=== PATIENT | male | born 1985 | race Asian ===

== ENCOUNTER → 2017-09-05 | Outpatient (CLI) | payer OTHER | END | disposition home or self-care (01) | LOC: EMPHLTH 09:58 | PROVIDERS: ATTEND Internal Medicine | DX: Z02.1 Encounter for pre-employment examination (principal) | CPT/HCPCS: 86706; 86735; 86762; 86765; 86787 ==

== ENCOUNTER 2019-02-07 18:57 | Emergency (ER) | payer OTHER ==
[~2019-02-07] VITALS: Ht 190.5 cm; Wt 122.7 kg
[2019-02-07 20:45] VITALS: BP 141/72
== END 2019-02-07 21:00 | disposition home or self-care (01) ==
LOC: EMS 18:58
DX: S62.306A Unspecified fracture of fifth metacarpal bone, right hand, initial encounter for closed fracture (principal); F17.210 Nicotine dependence, cigarettes, uncomplicated; W22.01XA Walked into wall, initial encounter; Y93.89 Activity, other specified; Y92.89 Other specified places as the place of occurrence of the external cause; Y99.8 Other external cause status

== ENCOUNTER 2019-02-10 15:46 | Emergency (ER) | payer MEDICARE, OTHER ==
[~2019-02-10] VITALS: Ht 190.5 cm; Wt 122.7 kg
[2019-02-10] MEDS ORDERED: SULFAMETHOX/TRIMETH DS 800-160 MG/TABLET PO ONE (17:00)
[2019-02-10] MEDS ORDERED: ACETAMINOPHEN 500 MG TABLET PO ONE (17:00)
[2019-02-10] MEDS ORDERED: CEPHALEXIN MONOHYDRATE 500 MG CAPSULE PO ONE (17:00)
[2019-02-10 19:05] VITALS: BP 108/79
== END 2019-02-10 19:05 | disposition home or self-care (01) ==
LOC: EMS 15:50
DX: S62.336D Displaced fracture of neck of fifth metacarpal bone, right hand, subsequent encounter for fracture with routine healing (principal); F17.210 Nicotine dependence, cigarettes, uncomplicated; W22.01XD Walked into wall, subsequent encounter
CPT/HCPCS: 99406

== ENCOUNTER 2019-03-15 15:03 | Emergency (ER) | payer MEDICARE, OTHER ==
[~2019-03-15] VITALS: Ht 190.5 cm; Wt 127.0 kg
[2019-03-15 16:12] VITALS: BP 126/72
== END 2019-03-15 16:17 | disposition home or self-care (01) ==
LOC: EMS 15:04
DX: S62.336A Displaced fracture of neck of fifth metacarpal bone, right hand, initial encounter for closed fracture (principal); F17.210 Nicotine dependence, cigarettes, uncomplicated; Z98.890 Other specified postprocedural states; X58.XXXA Exposure to other specified factors, initial encounter; Y93.89 Activity, other specified; Y92.89 Other specified places as the place of occurrence of the external cause; Y99.8 Other external cause status

== ENCOUNTER 2019-04-01 12:30 | Emergency (ER) | payer OTHER ==
[~2019-04-01] VITALS: Ht 190.5 cm; Wt 122.7 kg
[2019-04-01 13:16] VITALS: BP 127/92
[2019-04-01] MEDS ORDERED: IBUPROFEN 400 MG TABLET PO ONE (14:00)
== END 2019-04-01 14:49 | disposition home or self-care (01) ==
LOC: EMS 12:34
DX: J11.1 Influenza due to unidentified influenza virus with other respiratory manifestations (principal); F17.210 Nicotine dependence, cigarettes, uncomplicated

== ENCOUNTER → 2019-12-08 | Outpatient (CLI) | payer OTHER | END | disposition home or self-care (01) | LOC: LABPV 15:19 | PROVIDERS: ATTEND Internal Medicine | DX: Z20.828 Contact with and (suspected) exposure to other viral communicable diseases (principal) | CPT/HCPCS: U0003-CS ==

== ENCOUNTER → 2020-01-03 | Outpatient (CLI) | payer OTHER ==
[2020-01-03 16:04] LABS: COVID AG,FIA SOURCE NASOPHARYNGEAL
== END | disposition home or self-care (01) ==
LOC: LABMN 12:00
DX: Z20.828 Contact with and (suspected) exposure to other viral communicable diseases (principal)
CPT/HCPCS: 87426; U0003

== ENCOUNTER 2020-10-04 12:24 | Emergency (ER) | payer OTHER ==
[~2020-10-04] VITALS: Ht 190.5 cm; Wt 140.9 kg
[2020-10-04 13:22] LABS: COVID AG,FIA SOURCE NASOPHARYNGEAL
[2020-10-04] MEDS ORDERED: ACETAMINOPHEN 500 MG TABLET PO ONE (13:45)
[2020-10-04] MEDS ORDERED: IBUPROFEN 600 MG TABLET PO ONE (13:45)
[2020-10-04 14:50] VITALS: BP 128/81
== END 2020-10-04 14:51 | disposition home or self-care (01) ==
LOC: EMS 13:55
DX: U07.1 COVID-19 (principal)
CPT/HCPCS: 71045; 87426; 99284; C9803; U0003

== ENCOUNTER 2020-10-08 12:13 | Inpatient (IN) | payer OTHER ==
[~2020-10-08] VITALS: Ht 190.5 cm; Wt 130.5 kg
[2020-10-08] MEDS ORDERED: ACETAMINOPHEN 1000 MG/ISO-OSM 100 ML IV ONE (12:30)
[2020-10-08] MEDS ORDERED: SODIUM CHLORIDE 0.9% 1,000 ML IV ONE (12:30)
[2020-10-08 12:45] LABS: BASOPHILS % (AUTO) 0.3 % (0.0-2.0); EOSINOPHILS % (AUTO) 0 % (1.0-6.0); HEMATOCRIT 50.1 % (41-53); HEMOGLOBIN 16.8 g/dL (13.5-17.5); LYMPHOCYTES # (AUTO) 0.8 K/uL (1.0-4.8); LYMPHOCYTES % (AUTO) 15.2 % (22.0-44.0); MEAN CORPUSCULAR HEMOGLOBIN 28.7 pg (26.0-34.0); MEAN CORPUSCULAR HGB CONC 33.4 G/dL (31.0-37.0); MEAN CORPUSCULAR VOLUME 86 fL (80-100); MONOCYTES # (AUTO) 0.4 K/uL (0.1-1.0); MONOCYTES % (AUTO) 7.2 % (2.0-9.0); NEUTROPHILS # (AUTO) 4.1 K/uL (1.8-7.7); NEUTROPHILS % (AUTO) 77.3 % (40.0-70.0); PLATELET COUNT (AUTO) 157 K/uL (150-450); RED BLOOD CELL COUNT(AUTO) 5.85 MIL/uL (4.50-5.90); RED CELL DISTRIBUTION WIDTH 13.8 % (11.5-14.5)
[2020-10-08 12:52] LABS: ANION GAP 13 mmol/L (8-16); CALCIUM, TOTAL 8.4 mg/dL (8.8-10.5); CARBON DIOXIDE 22 mmol/L (22-29); CHLORIDE 98 mmol/L (98-107); CREATININE 1.73 mg/dL (0.60-1.30); GLOMERULAR FILTR. RATE CALC 45 mL/min (>60); GLUCOSE,RANDOM 131 mg/dL (70-110); POTASSIUM 3.3 mmol/L (3.5-5.1); SODIUM SERUM 133 mmol/L (136-145); UREA NITROGEN, BLOOD 18 mg/dL (7-18)
[2020-10-08 12:58] LABS: D-DIMER 0.54 mg/L FEU (0.00-0.50); PROTHROMBIN TIME 10.7 SEC (9.4-11.6)
[2020-10-08 13:11] LABS: B-TYPE NATRIURETIC PEPTIDE < 5 pg/mL (0-100)
[2020-10-08] MEDS ORDERED: FentaNYL CITRATE PF 100 MCG/2 ML VIAL IVP ONE (13:15)
[2020-10-08] MEDS ORDERED: ONDANSETRON HCL 4 MG/2 ML VIAL IVP ONE ×2 (13:15)
[2020-10-08] MEDS ORDERED: DEXAMETHASONE SOD PHOS 4 MG/ML 5 ML VIAL IVP ONE (13:30)
[2020-10-08] MEDS ORDERED: DEXAMETHASONE SOD PHOS 4 MG/ML 5 ML VIAL IM ONE (13:30)
[2020-10-08 13:31] LABS: ALANINE AMINOTRANSFERASE 81 U/L (12-78); ALBUMIN 3.8 g/dL (3.4-5.0); ALKALINE PHOSPHATASE 68 U/L (46-116); ASPARTATE AMINOTRANSFERASE 84 U/L (15-37); BILIRUBIN,TOTAL 0.5 mg/dL (0.1-1.0); FERRITIN 2106 ng/mL (26-388); LACTATE DEHYDROGENASE 373 U/L (85-227); TOTAL PROTEIN, SERUM 8.4 g/dL (6.4-8.2)
[2020-10-08 13:33] LABS: CREATINE KINASE, TOTAL ONLY 2354 U/L (39-308)
[2020-10-08 14:12] LABS: INFLUENZA TYPE A NEGATIVE FOR TYPE A (NEGATIVE); INFLUENZA TYPE B NEGATIVE FOR TYPE B (NEGATIVE)
[2020-10-08] MEDS ORDERED: REMDESIVIR 200 MG in SODIUM CHLORIDE 0.9% 250 ML IV ONE (14:15)
[2020-10-08 14:24] LABS: ABG A-A DIFF O2 42.4 mmHg (10-20.0); ABG BASE EXCESS -4.8 mmol/L (-2.0-3.0); ABG CARBOXYHEMOGLOBIN 0.6 % (0.0-1.5); ABG HCO3 21.4 mmol/L (22.0-26.0); ABG METHEMOGLOBIN 0.1 % (0.0-1.5); ABG OXYGEN CONTENT 20.9 mL/dL (15.0-23.0); ABG OXYGEN SATURATION 94.1 % (95.0-98.0); ABG OXYHEMOGLOBIN 93.4 % (94.0-100.0); ABG PCO2 32 mmHg (35-45); ABG PH 7.408 (7.350-7.450); ABG TOTAL HEMOGLOBIN 15.9 G/dL (12.0-18.0); PO2, ARTERIAL BG 68.8 mmHg (92.0-100.0); SOURCE, BLOOD GAS ARTERIAL; TEMPERATURE, FAHRENHEIT, BG 98.2 FAHREN (96.0-98.6)
[2020-10-08 14:25] LABS: O2 DEVICE,BLOOD GAS ROOM AIR (ROOM AIR); SITE, BLOOD GAS LFT RADIAL
[2020-10-08] MEDS ORDERED: ACETAMINOPHEN 325 MG TABLET PO PRN (14:45)
[2020-10-08] MEDS ORDERED: 0.9% SODIUM CHLORIDE 10 ML SYRINGE IVP PRN (14:45)
[2020-10-08] MEDS ORDERED: ONDANSETRON HCL 4 MG/2 ML VIAL IVP PRN ×2 (14:45→16:15)
[2020-10-08] MEDS ORDERED: MORPHINE SULFATE 2 MG/ML SYRINGE IVP PRN (16:15)
[2020-10-08] MEDS ORDERED: MAGNESIUM HYDROXIDE SUSPENSION 30 ML UDCUP PO PRN (16:15)
[2020-10-08] MEDS ORDERED: SODIUM CHLORIDE 0.9% 500 ML IV ONE (16:15)
[2020-10-08] MEDS ORDERED: HYDROCODONE/ACETAMINOPHEN 5-325 MG TABLET PO PRN (16:15)
[2020-10-08] MEDS ORDERED: HEPARIN SODIUM,PORCINE 5,000 UNITS/ML VIAL IVP PRN ×2 (16:15)
[2020-10-08] MEDS ORDERED: BISACODYL 10 MG RECTAL RECTAL SUPPOSITORY PR PRN (16:15)
[2020-10-08 16:37] LABS: HEMATOCRIT 44.3 % (41-53); MEAN CORPUSCULAR HEMOGLOBIN 28.6 pg (26.0-34.0); MEAN CORPUSCULAR HGB CONC 33.8 G/dL (31.0-37.0); MEAN CORPUSCULAR VOLUME 85 fL (80-100); PLATELET COUNT (AUTO) 142 K/uL (150-450); RED BLOOD CELL COUNT(AUTO) 5.24 MIL/uL (4.50-5.90); RED CELL DISTRIBUTION WIDTH 13.9 % (11.5-14.5)
[2020-10-08 16:52] LABS: PROTHROMBIN TIME 10.7 SEC (9.4-11.6)
[2020-10-08 17:22] LABS: BAND NEUTROPHILS % (MANUAL) 47 % (0-5); BASOPHILS % (MANUAL) 1 % (0-2); LYMPHOCYTES % (MANUAL) 8 % (22-44); MONOCYTES % (MANUAL) 3 % (2-9); SEGMENTED NEUTROPHILS % 41 % (40-70)
[2020-10-08 19:57] VITALS: BP 116/73
[2020-10-08] MEDS: DOCUSATE SODIUM 100 MG CAPSULE PO SCH ×2 (21:10→23:57)
[2020-10-08] MEDS: ZOLPIDEM TARTRATE 5 MG TABLET PO PRN (21:11)
[2020-10-08] MEDS: HEPARIN SODIUM 25000 UNITS/D5W 250 ML IV PRN (21:49)
[2020-10-08 23:16] VITALS: BP 115/69
[2020-10-09] MEDS ORDERED: HEPARIN SODIUM,PORCINE 5,000 UNITS/ML VIAL SQ SCH
[2020-10-09 04:31] VITALS: BP 113/73
[2020-10-09] MEDS: ACETAMINOPHEN 325 MG TABLET PO PRN (04:36)
[2020-10-09 06:20] LABS: BASOPHILS % (AUTO) 0.1 % (0.0-2.0); EOSINOPHILS % (AUTO) 0 % (1.0-6.0); HEMATOCRIT 43.1 % (41-53); HEMOGLOBIN 14.6 g/dL (13.5-17.5); LYMPHOCYTES # (AUTO) 0.5 K/uL (1.0-4.8); LYMPHOCYTES % (AUTO) 16.2 % (22.0-44.0); MEAN CORPUSCULAR HEMOGLOBIN 28.9 pg (26.0-34.0); MEAN CORPUSCULAR HGB CONC 33.8 G/dL (31.0-37.0); MEAN CORPUSCULAR VOLUME 86 fL (80-100); MONOCYTES # (AUTO) 0.3 K/uL (0.1-1.0); MONOCYTES % (AUTO) 9.1 % (2.0-9.0); NEUTROPHILS # (AUTO) 2.5 K/uL (1.8-7.7); NEUTROPHILS % (AUTO) 74.6 % (40.0-70.0); PLATELET COUNT (AUTO) 137 K/uL (150-450); RED BLOOD CELL COUNT(AUTO) 5.03 MIL/uL (4.50-5.90); RED CELL DISTRIBUTION WIDTH 14.1 % (11.5-14.5)
[2020-10-09] MEDS ORDERED: POTASSIUM CHLORIDE 20 MEQ ER TABLET PO ONE (06:30)
[2020-10-09 06:47] LABS: D-DIMER 0.54 mg/L FEU (0.00-0.50)
[2020-10-09 07:23] LABS: ALANINE AMINOTRANSFERASE 70 U/L (12-78); ALBUMIN 2.9 g/dL (3.4-5.0); ALKALINE PHOSPHATASE 53 U/L (46-116); ANION GAP 10 mmol/L (8-16); ASPARTATE AMINOTRANSFERASE 82 U/L (15-37); BILIRUBIN,TOTAL 0.3 mg/dL (0.1-1.0); C-REACTIVE PROTEIN QUANT 1.55 mg/dL (0.00-0.30); CALCIUM, TOTAL 7.6 mg/dL (8.8-10.5); CARBON DIOXIDE 23 mmol/L (22-29); CHLORIDE 99 mmol/L (98-107); CREATININE 1.28 mg/dL (0.60-1.30); FERRITIN 2450 ng/mL (26-388); GLOMERULAR FILTR. RATE CALC > 60 mL/min (>60); GLUCOSE,RANDOM 147 mg/dL (70-110); LACTATE DEHYDROGENASE 369 U/L (85-227); POTASSIUM 3.5 mmol/L (3.5-5.1); SODIUM SERUM 132 mmol/L (136-145); TOTAL PROTEIN, SERUM 6.8 g/dL (6.4-8.2); UREA NITROGEN, BLOOD 15 mg/dL (7-18)
[2020-10-09] MEDS: PANTOPRAZOLE SODIUM 40 MG DR TABLET PO SCH (08:04)
[2020-10-09] MEDS: DEXAMETHASONE 4 MG TABLET PO SCH (08:05)
[2020-10-09 08:10] VITALS: BP 102/52
[2020-10-09 08:10] LABS: CREATINE KINASE, TOTAL ONLY 1785 U/L (39-308)
[2020-10-09 12:05] VITALS: BP 116/70
[2020-10-09] MEDS: HEPARIN SODIUM 25000 UNITS/D5W 250 ML IV PRN (14:28)
[2020-10-09] MEDS: REMDESIVIR 100 MG in SODIUM CHLORIDE 0.9% 250 ML IV SCH (14:42)
[2020-10-09 20:27] VITALS: BP 108/61
[2020-10-09] MEDS: DOCUSATE SODIUM 100 MG CAPSULE PO SCH (21:00)
[2020-10-09 23:54] VITALS: BP 102/66
[2020-10-09] MEDS: ZOLPIDEM TARTRATE 5 MG TABLET PO PRN (23:55)
[2020-10-10 04:49] VITALS: BP 105/64
[2020-10-10 07:17] LABS: D-DIMER 0.35 mg/L FEU (0.00-0.50)
[2020-10-10] MEDS: PANTOPRAZOLE SODIUM 40 MG DR TABLET PO SCH (07:38)
[2020-10-10] MEDS: DOCUSATE SODIUM 100 MG CAPSULE PO SCH ×2 (07:38→21:00)
[2020-10-10] MEDS: DEXAMETHASONE 4 MG TABLET PO SCH (07:38)
[2020-10-10 08:00] LABS: C-REACTIVE PROTEIN QUANT 0.7 mg/dL (0.00-0.30)
[2020-10-10 08:46] VITALS: BP 104/64
[2020-10-10 11:44] VITALS: BP 127/66
[2020-10-10] MEDS: REMDESIVIR 100 MG in SODIUM CHLORIDE 0.9% 250 ML IV SCH (13:35)
[2020-10-10] MEDS ORDERED: BENZONATATE 100 MG CAPSULE PO PRN (14:00)
[2020-10-10] MEDS: HEPARIN SODIUM,PORCINE 5,000 UNITS/ML VIAL SQ SCH (16:22)
[2020-10-10 16:37] VITALS: BP 135/64
[2020-10-10 20:22] VITALS: BP 103/57
[2020-10-11] MEDS: HEPARIN SODIUM,PORCINE 5,000 UNITS/ML VIAL SQ SCH ×3 (00:12→16:15)
[2020-10-11 00:32] VITALS: BP 102/59
[2020-10-11 05:01] VITALS: BP 109/58
[2020-10-11 07:50] LABS: D-DIMER 0.35 mg/L FEU (0.00-0.50)
[2020-10-11] MEDS: PANTOPRAZOLE SODIUM 40 MG DR TABLET PO SCH (08:09)
[2020-10-11] MEDS: DEXAMETHASONE 4 MG TABLET PO SCH (08:09)
[2020-10-11] MEDS: DOCUSATE SODIUM 100 MG CAPSULE PO SCH ×2 (08:19→21:12)
[2020-10-11 08:30] LABS: ALANINE AMINOTRANSFERASE 96 U/L (12-78); ALBUMIN 2.8 g/dL (3.4-5.0); ALKALINE PHOSPHATASE 54 U/L (46-116); ANION GAP 5 mmol/L (8-16); ASPARTATE AMINOTRANSFERASE 86 U/L (15-37); BILIRUBIN,TOTAL 0.3 mg/dL (0.1-1.0); C-REACTIVE PROTEIN QUANT 0.36 mg/dL (0.00-0.30); CARBON DIOXIDE 28 mmol/L (22-29); CHLORIDE 101 mmol/L (98-107); CREATINE KINASE, TOTAL ONLY 712 U/L (39-308); CREATININE 0.93 mg/dL (0.60-1.30); FERRITIN 2852 ng/mL (26-388); GLOMERULAR FILTR. RATE CALC > 60 mL/min (>60); GLUCOSE,RANDOM 158 mg/dL (70-110); LACTATE DEHYDROGENASE 477 U/L (85-227); POTASSIUM 3.3 mmol/L (3.5-5.1); SODIUM SERUM 134 mmol/L (136-145); TOTAL PROTEIN, SERUM 6.6 g/dL (6.4-8.2); UREA NITROGEN, BLOOD 13 mg/dL (7-18)
[2020-10-11 08:35] VITALS: BP 106/69
[2020-10-11 12:01] VITALS: BP 106/60
[2020-10-11] MEDS ORDERED: GuaiFENesin/CODEINE [SUGAR FREE] 200-20MG/10 ML SYRUP UDCUP PO PRN (13:00)
[2020-10-11] MEDS ORDERED: POTASSIUM CHL 10 MEQ/WATER 50 ML IV PRN (13:15)
[2020-10-11] MEDS: REMDESIVIR 100 MG in SODIUM CHLORIDE 0.9% 250 ML IV SCH (14:01)
[2020-10-11] MEDS: POTASSIUM CHLORIDE 20 MEQ ER TABLET PO PRN (14:02)
[2020-10-11 15:37] VITALS: BP 111/58
[2020-10-11] MEDS: BENZONATATE 100 MG CAPSULE PO SCH (16:12)
[2020-10-11 20:23] VITALS: BP 105/61
[2020-10-11] MEDS: ZOLPIDEM TARTRATE 5 MG TABLET PO PRN (21:12)
[2020-10-11] MEDS: ACETAMINOPHEN 325 MG TABLET PO PRN (21:12)
[2020-10-12] VITALS (7 sets, daily range): BP systolic 92–111; BP diastolic 45–65
[2020-10-12] MEDS: BENZONATATE 100 MG CAPSULE PO SCH ×4 (00:07→23:23)
[2020-10-12] MEDS: HEPARIN SODIUM,PORCINE 5,000 UNITS/ML VIAL SQ SCH ×4 (00:08→23:23)
[2020-10-12 07:04] LABS: ALANINE AMINOTRANSFERASE 158 U/L (12-78); ALBUMIN 2.8 g/dL (3.4-5.0); ALKALINE PHOSPHATASE 57 U/L (46-116); ANION GAP 5 mmol/L (8-16); ASPARTATE AMINOTRANSFERASE 124 U/L (15-37); BILIRUBIN,TOTAL 0.4 mg/dL (0.1-1.0); C-REACTIVE PROTEIN QUANT 0.23 mg/dL (0.00-0.30); CALCIUM, TOTAL 8.3 mg/dL (8.8-10.5); CARBON DIOXIDE 29 mmol/L (22-29); CHLORIDE 103 mmol/L (98-107); CREATININE 0.94 mg/dL (0.60-1.30); FERRITIN 2931 ng/mL (26-388); GLOMERULAR FILTR. RATE CALC > 60 mL/min (>60); GLUCOSE,RANDOM 132 mg/dL (70-110); LACTATE DEHYDROGENASE 535 U/L (85-227); POTASSIUM 3.9 mmol/L (3.5-5.1); SODIUM SERUM 137 mmol/L (136-145); TOTAL PROTEIN, SERUM 6.8 g/dL (6.4-8.2); UREA NITROGEN, BLOOD 14 mg/dL (7-18)
[2020-10-12 07:09] LABS: D-DIMER 0.34 mg/L FEU (0.00-0.50)
[2020-10-12] MEDS: DEXAMETHASONE 4 MG TABLET PO SCH (08:46)
[2020-10-12] MEDS: DOCUSATE SODIUM 100 MG CAPSULE PO SCH ×3 (08:46→20:02)
[2020-10-12] MEDS: PANTOPRAZOLE SODIUM 40 MG DR TABLET PO SCH (08:46)
[2020-10-12] MEDS: REMDESIVIR 100 MG in SODIUM CHLORIDE 0.9% 250 ML IV SCH (13:16)
[2020-10-13 05:16] VITALS: BP 108/59
[2020-10-13 07:46] LABS: ALANINE AMINOTRANSFERASE 312 U/L (12-78); ALBUMIN 2.7 g/dL (3.4-5.0); ALKALINE PHOSPHATASE 55 U/L (46-116); ANION GAP 6 mmol/L (8-16); ASPARTATE AMINOTRANSFERASE 214 U/L (15-37); BILIRUBIN,TOTAL 0.4 mg/dL (0.1-1.0); CALCIUM, TOTAL 8.1 mg/dL (8.8-10.5); CARBON DIOXIDE 25 mmol/L (22-29); CHLORIDE 104 mmol/L (98-107); CREATININE 0.88 mg/dL (0.60-1.30); FERRITIN 3747 ng/mL (26-388); GLOMERULAR FILTR. RATE CALC > 60 mL/min (>60); GLUCOSE,RANDOM 119 mg/dL (70-110); LACTATE DEHYDROGENASE 515 U/L (85-227); POTASSIUM 3.7 mmol/L (3.5-5.1); SODIUM SERUM 135 mmol/L (136-145); TOTAL PROTEIN, SERUM 6.5 g/dL (6.4-8.2); UREA NITROGEN, BLOOD 15 mg/dL (7-18)
[2020-10-13] MEDS: DEXAMETHASONE 4 MG TABLET PO SCH (07:58)
[2020-10-13] MEDS: DOCUSATE SODIUM 100 MG CAPSULE PO SCH ×3 (07:58→20:32)
[2020-10-13] MEDS: HEPARIN SODIUM,PORCINE 5,000 UNITS/ML VIAL SQ SCH ×4 (07:59→23:26)
[2020-10-13] MEDS: BENZONATATE 100 MG CAPSULE PO SCH ×4 (07:59→23:26)
[2020-10-13] MEDS: PANTOPRAZOLE SODIUM 40 MG DR TABLET PO SCH (07:59)
[2020-10-13 08:09] VITALS: BP 106/54
[2020-10-13 11:30] VITALS: BP 105/68
[2020-10-13 15:45] VITALS: BP 107/69
[2020-10-13 20:28] VITALS: BP 110/63
[2020-10-14] VITALS (7 sets, daily range): BP systolic 101–118; BP diastolic 60–76
[2020-10-14 08:05] LABS: ALANINE AMINOTRANSFERASE 783 U/L (12-78); ALBUMIN 2.8 g/dL (3.4-5.0); ALKALINE PHOSPHATASE 63 U/L (46-116); ANION GAP 9 mmol/L (8-16); ASPARTATE AMINOTRANSFERASE 420 U/L (15-37); BILIRUBIN,TOTAL 0.6 mg/dL (0.1-1.0); CALCIUM, TOTAL 8.7 mg/dL (8.8-10.5); CARBON DIOXIDE 26 mmol/L (22-29); CHLORIDE 104 mmol/L (98-107); CREATINE KINASE, TOTAL ONLY 81 U/L (39-308); CREATININE 0.98 mg/dL (0.60-1.30); FERRITIN 7228 ng/mL (26-388); GLOMERULAR FILTR. RATE CALC > 60 mL/min (>60); GLUCOSE,RANDOM 119 mg/dL (70-110); LACTATE DEHYDROGENASE 616 U/L (85-227); POTASSIUM 4.2 mmol/L (3.5-5.1); SODIUM SERUM 139 mmol/L (136-145); TOTAL PROTEIN, SERUM 6.8 g/dL (6.4-8.2); UREA NITROGEN, BLOOD 15 mg/dL (7-18)
[2020-10-14] MEDS: DOCUSATE SODIUM 100 MG CAPSULE PO SCH ×3 (08:07→20:22)
[2020-10-14] MEDS: PANTOPRAZOLE SODIUM 40 MG DR TABLET PO SCH (08:07)
[2020-10-14] MEDS: HEPARIN SODIUM,PORCINE 5,000 UNITS/ML VIAL SQ SCH ×3 (08:07→23:50)
[2020-10-14] MEDS: DEXAMETHASONE 4 MG TABLET PO SCH (08:07)
[2020-10-14] MEDS: BENZONATATE 100 MG CAPSULE PO SCH ×3 (08:07→23:50)
[2020-10-14] MEDS: FAMOTIDINE 20 MG TABLET PO SCH (20:16)
[2020-10-15] VITALS (7 sets, daily range): BP systolic 92–113; BP diastolic 52–68
[2020-10-15 06:17] LABS: HEMATOCRIT 42.7 % (41-53); HEMOGLOBIN 13.9 g/dL (13.5-17.5); MEAN CORPUSCULAR HEMOGLOBIN 28.2 pg (26.0-34.0); MEAN CORPUSCULAR HGB CONC 32.6 G/dL (31.0-37.0); MEAN CORPUSCULAR VOLUME 86 fL (80-100); PLATELET COUNT (AUTO) 420 K/uL (150-450); RED BLOOD CELL COUNT(AUTO) 4.94 MIL/uL (4.50-5.90)
[2020-10-15 07:22] LABS: ALANINE AMINOTRANSFERASE 734 U/L (12-78); ALBUMIN 2.7 g/dL (3.4-5.0); ALKALINE PHOSPHATASE 67 U/L (46-116); ANION GAP 9 mmol/L (8-16); ASPARTATE AMINOTRANSFERASE 211 U/L (15-37); BILIRUBIN,TOTAL 0.7 mg/dL (0.1-1.0); C-REACTIVE PROTEIN QUANT 1.85 mg/dL (0.00-0.30); CALCIUM, TOTAL 8.6 mg/dL (8.8-10.5); CARBON DIOXIDE 24 mmol/L (22-29); CHLORIDE 102 mmol/L (98-107); CREATININE 0.81 mg/dL (0.60-1.30); FERRITIN 6775 ng/mL (26-388); GLOMERULAR FILTR. RATE CALC > 60 mL/min (>60); GLUCOSE,RANDOM 107 mg/dL (70-110); LACTATE DEHYDROGENASE 683 U/L (85-227); POTASSIUM 4.1 mmol/L (3.5-5.1); SODIUM SERUM 135 mmol/L (136-145); TOTAL PROTEIN, SERUM 7.1 g/dL (6.4-8.2); UREA NITROGEN, BLOOD 14 mg/dL (7-18)
[2020-10-15 07:40] LABS: BAND NEUTROPHILS % (MANUAL) 0 % (0-5)
[2020-10-15 07:46] LABS: EOSINOPHILS % (MANUAL) 5 % (1-6); LYMPHOCYTES % (MANUAL) 11 % (22-44); METAMYELOCYTES % 4 % (0-0); MONOCYTES % (MANUAL) 13 % (2-9); MYELOCYTES % 1 % (0-0); SEGMENTED NEUTROPHILS % 66 % (40-70)
[2020-10-15] MEDS: HEPARIN SODIUM,PORCINE 5,000 UNITS/ML VIAL SQ SCH ×2 (08:00→15:52)
[2020-10-15] MEDS: DOCUSATE SODIUM 100 MG CAPSULE PO SCH ×2 (08:49→20:36)
[2020-10-15] MEDS: DEXAMETHASONE 4 MG TABLET PO SCH (08:50)
[2020-10-15] MEDS: FAMOTIDINE 20 MG TABLET PO SCH ×2 (08:50→20:36)
[2020-10-15] MEDS: BENZONATATE 100 MG CAPSULE PO SCH ×2 (08:50→15:52)
[2020-10-16] MEDS: HEPARIN SODIUM,PORCINE 5,000 UNITS/ML VIAL SQ SCH ×3 (00:17→15:48)
[2020-10-16 03:55] VITALS: BP 116/71
[2020-10-16] MEDS: BENZONATATE 100 MG CAPSULE PO SCH ×3 (07:46→15:47)
[2020-10-16] MEDS: FAMOTIDINE 20 MG TABLET PO SCH ×3 (07:46→20:21)
[2020-10-16] MEDS: DEXAMETHASONE 4 MG TABLET PO SCH (07:46)
[2020-10-16] MEDS: DOCUSATE SODIUM 100 MG CAPSULE PO SCH ×4 (07:46→20:21)
[2020-10-16 08:13] VITALS: BP 111/62
[2020-10-16 11:59] VITALS: BP 107/69
[2020-10-16 16:00] VITALS: BP 116/61
[2020-10-16 19:20] VITALS: BP 123/78
[2020-10-17 00:15] VITALS: BP 107/69
[2020-10-17] MEDS: BENZONATATE 100 MG CAPSULE PO SCH ×4 (00:37→16:00)
[2020-10-17] MEDS: HEPARIN SODIUM,PORCINE 5,000 UNITS/ML VIAL SQ SCH ×3 (00:37→16:00)
[2020-10-17 03:35] VITALS: BP 116/50
[2020-10-17 07:26] LABS: ALANINE AMINOTRANSFERASE 450 U/L (12-78); ALBUMIN 2.6 g/dL (3.4-5.0); ALKALINE PHOSPHATASE 94 U/L (46-116); ANION GAP 11 mmol/L (8-16); ASPARTATE AMINOTRANSFERASE 69 U/L (15-37); BILIRUBIN,TOTAL 0.3 mg/dL (0.1-1.0); C-REACTIVE PROTEIN QUANT 0.38 mg/dL (0.00-0.30); CALCIUM, TOTAL 8.2 mg/dL (8.8-10.5); CARBON DIOXIDE 23 mmol/L (22-29); CHLORIDE 103 mmol/L (98-107); CREATININE 0.88 mg/dL (0.60-1.30); GLOMERULAR FILTR. RATE CALC > 60 mL/min (>60); GLUCOSE,RANDOM 175 mg/dL (70-110); LACTATE DEHYDROGENASE 334 U/L (85-227); POTASSIUM 3.4 mmol/L (3.5-5.1); SODIUM SERUM 137 mmol/L (136-145); TOTAL PROTEIN, SERUM 6.7 g/dL (6.4-8.2); UREA NITROGEN, BLOOD 14 mg/dL (7-18)
[2020-10-17 08:41] LABS: FERRITIN 3495 ng/mL (26-388)
[2020-10-17 09:00] VITALS: BP 107/55
[2020-10-17] MEDS: FAMOTIDINE 20 MG TABLET PO SCH ×2 (09:00→21:00)
[2020-10-17] MEDS: DOCUSATE SODIUM 100 MG CAPSULE PO SCH ×2 (09:00→21:00)
[2020-10-17] MEDS: DEXAMETHASONE 4 MG TABLET PO SCH (09:27)
[2020-10-17] MEDS: POTASSIUM CHLORIDE 20 MEQ ER TABLET PO PRN (10:21)
[2020-10-17 12:35] VITALS: BP 107/69
[2020-10-17 16:42] VITALS: BP 113/71
[2020-10-17 20:31] VITALS: BP 113/71
[2020-10-18 00:15] VITALS: BP 117/62
[2020-10-18] MEDS: HEPARIN SODIUM,PORCINE 5,000 UNITS/ML VIAL SQ SCH ×2 (00:28→08:00)
[2020-10-18 04:00] VITALS: BP 119/79
[2020-10-18 07:43] VITALS: BP 106/73
[2020-10-18 07:49] LABS: ALANINE AMINOTRANSFERASE 540 U/L (12-78); ALBUMIN 2.7 g/dL (3.4-5.0); ALKALINE PHOSPHATASE 111 U/L (46-116); ANION GAP 11 mmol/L (8-16); ASPARTATE AMINOTRANSFERASE 124 U/L (15-37); BILIRUBIN,TOTAL 0.3 mg/dL (0.1-1.0); CALCIUM, TOTAL 8.5 mg/dL (8.8-10.5); CARBON DIOXIDE 24 mmol/L (22-29); CHLORIDE 102 mmol/L (98-107); CREATININE 0.96 mg/dL (0.60-1.30); GLOMERULAR FILTR. RATE CALC > 60 mL/min (>60); GLUCOSE,RANDOM 117 mg/dL (70-110); POTASSIUM 4.2 mmol/L (3.5-5.1); SODIUM SERUM 137 mmol/L (136-145); TOTAL PROTEIN, SERUM 6.8 g/dL (6.4-8.2); UREA NITROGEN, BLOOD 15 mg/dL (7-18)
[2020-10-18] MEDS: BENZONATATE 100 MG CAPSULE PO SCH ×2 (08:00)
[2020-10-18] MEDS: DOCUSATE SODIUM 100 MG CAPSULE PO SCH (08:28)
[2020-10-18] MEDS: FAMOTIDINE 20 MG TABLET PO SCH (08:28)
[2020-10-18] MEDS: DEXAMETHASONE 4 MG TABLET PO SCH (08:28)
[2020-10-18] MEDS ORDERED: ALBU8HFA IH (11:19)
[2020-10-18] MEDS ORDERED: BENZ-70 PO (11:21)
[2020-10-18 11:39] VITALS: BP 110/58
== END 2020-10-18 14:10 | disposition home or self-care (01) | DRG 177 ==
LOC: EMS 12:13 → 5S 16:06
PROVIDERS: ADMIT Internal Medicine; ATTEND Internal Medicine
PROC: XW033E5 Introduction of Remdesivir Anti-infective into Peripheral Vein, Percutaneous Approach, New Technology Group 5 (ICD-10-PCS; principal; 2020-10-08)
DX: U07.1 COVID-19 (principal); J12.82 Pneumonia due to coronavirus disease 2019; J96.01 Acute respiratory failure with hypoxia; N17.9 Acute kidney failure, unspecified; E87.1 Hypo-osmolality and hyponatremia; D68.59 Other primary thrombophilia; R19.7 Diarrhea, unspecified; R74.01 Elevation of levels of liver transaminase levels; Z60.2 Problems related to living alone; R79.89 Other specified abnormal findings of blood chemistry; E87.6 Hypokalemia; E66.01 Morbid (severe) obesity due to excess calories; Z96.659 Presence of unspecified artificial knee joint; D72.810 Lymphocytopenia; Z78.9 Other specified health status; Z68.36 Body mass index [BMI] 36.0-36.9, adult; T50.995A Adverse effect of other drugs, medicaments and biological substances, initial encounter; Y92.230 Patient room in hospital as the place of occurrence of the external cause
CPT/HCPCS: 36600; 71045; 76700; 80053; 82550; 82728; 82805; 83605; 83615; 83735; 83880; 84132; 84145; 84484; 85025; 85379; 85384; 85610; 85730; 86140; 87040; 87804; 93005; 99285; A9575; J0131; J1100; J1644; J2405; J3010; J7040; J7050; J8540; 36415-L1; 36415-TC; U0003

== ENCOUNTER 2021-01-20 12:30 | Emergency (ER) | payer OTHER ==
[~2021-01-20] VITALS: Ht 190.5 cm; Wt 131.8 kg
[~2021-01-20 12:30] MED LIST: ALBU8HFA IH; BENZ-70 PO
[2021-01-20] MEDS ORDERED: ACETAMINOPHEN 500 MG TABLET PO ONE (13:00)
[2021-01-20] MEDS ORDERED: SODIUM CHLORIDE 0.9% 1,000 ML IV ONE (13:00)
[2021-01-20 13:14] LABS: COVID AG,FIA SOURCE NASOPHARYNGEAL
[2021-01-20 13:18] LABS: BASOPHILS % (AUTO) 0.7 % (0.0-2.0); HEMATOCRIT 44.9 % (41-53); HEMOGLOBIN 15.2 g/dL (13.5-17.5); LYMPHOCYTES # (AUTO) 1.6 K/uL (1.0-4.8); LYMPHOCYTES % (AUTO) 26.5 % (22.0-44.0); MEAN CORPUSCULAR HEMOGLOBIN 29.4 pg (26.0-34.0); MEAN CORPUSCULAR HGB CONC 33.8 G/dL (31.0-37.0); MEAN CORPUSCULAR VOLUME 87 fL (80-100); MONOCYTES # (AUTO) 0.9 K/uL (0.1-1.0); MONOCYTES % (AUTO) 15.2 % (2.0-9.0); NEUTROPHILS # (AUTO) 3.4 K/uL (1.8-7.7); NEUTROPHILS % (AUTO) 56.6 % (40.0-70.0); PLATELET COUNT (AUTO) 206 K/uL (150-450); RED BLOOD CELL COUNT(AUTO) 5.17 MIL/uL (4.50-5.90)
[2021-01-20 13:28] LABS: ANION GAP 10 mmol/L (8-16); CARBON DIOXIDE 23 mmol/L (22-29); CHLORIDE 104 mmol/L (98-107); CREATININE 1.11 mg/dL (0.60-1.30); GLOMERULAR FILTR. RATE CALC > 60 mL/min (>60); GLUCOSE,RANDOM 112 mg/dL (70-110); POTASSIUM 3.7 mmol/L (3.5-5.1); SODIUM SERUM 137 mmol/L (136-145); UREA NITROGEN, BLOOD 15 mg/dL (7-18)
[2021-01-20 13:40] LABS: ALANINE AMINOTRANSFERASE 58 U/L (12-78); ALBUMIN 4.1 g/dL (3.4-5.0); ALKALINE PHOSPHATASE 86 U/L (46-116); ASPARTATE AMINOTRANSFERASE 30 U/L (15-37); BILIRUBIN,TOTAL 0.4 mg/dL (0.1-1.0); TOTAL PROTEIN, SERUM 8.5 g/dL (6.4-8.2)
[2021-01-20 13:45] VITALS: BP 119/77
== END 2021-01-20 14:10 | disposition home or self-care (01) ==
LOC: EMS 12:30
DX: R53.81 Other malaise (principal); T50.B95A Adverse effect of other viral vaccines, initial encounter; Z20.822 Contact with and (suspected) exposure to COVID-19
CPT/HCPCS: 36415; 80053; 85025; 87426; 96360; 99283; J7030

== ENCOUNTER 2022-01-02 10:58 | Emergency (ER) | payer MEDICAID ==
[~2022-01-02] VITALS: Ht 190.5 cm; Wt 131.8 kg
[~2022-01-02 10:58] MED LIST changes: +AMOX1TAB15 PO
[2022-01-02 11:00] VITALS: BP 112/89
[2022-01-02] MEDS ORDERED: LIDOCAINE 2% 5 ML JELLY TP ONE (12:00)
== END 2022-01-02 13:17 | disposition home or self-care (01) ==
LOC: EMS 11:01
DX: Z48.00 Encounter for change or removal of nonsurgical wound dressing (principal); F10.20 Alcohol dependence, uncomplicated; Z96.653 Presence of artificial knee joint, bilateral
CPT/HCPCS: 99283

== ENCOUNTER 2022-01-04 08:19 | Emergency (ER) | payer MEDICAID ==
[~2022-01-04] VITALS: Ht 190.5 cm; Wt 131.8 kg
[2022-01-04] MEDS ORDERED: [UNRECOGNIZED DRUG - REMARK] PO (08:21)
[2022-01-04] MEDS ORDERED: LIDOCAINE 2% 5 ML JELLY TP ONE (08:30)
[2022-01-04 08:45] VITALS: BP 120/82
== END 2022-01-04 09:00 | disposition home or self-care (01) ==
LOC: EMS 08:21
DX: L05.01 Pilonidal cyst with abscess (principal); Z48.00 Encounter for change or removal of nonsurgical wound dressing
CPT/HCPCS: 99281; 99282; Z7502; Z7610

== ENCOUNTER 2022-01-06 10:04 | Emergency (ER) | payer MEDICAID ==
[~2022-01-06] VITALS: Ht 188 cm; Wt 110.0 kg
[~2022-01-06 10:04] MED LIST changes: -ALBU8HFA IH; -AMOX1TAB15 PO; -BENZ-70 PO; +[UNRECOGNIZED DRUG - REMARK] PO
[2022-01-06 10:11] VITALS: BP 100/53
[2022-01-06] MEDS ORDERED: AMOX1TAB15 PO (11:48)
== END 2022-01-06 11:46 | disposition home or self-care (01) ==
LOC: EMS 10:04
DX: L05.01 Pilonidal cyst with abscess (principal); F10.20 Alcohol dependence, uncomplicated
CPT/HCPCS: 99282; Z7502

== ENCOUNTER 2024-06-10 19:54 | Emergency (ER) | payer MEDICAID ==
[~2024-06-10] VITALS: Ht 190.5 cm; Wt 131.8 kg
[~2024-06-10 19:54] MED LIST changes: +AMOX1TAB15 PO; -[UNRECOGNIZED DRUG - REMARK] PO
[2024-06-10 20:00] VITALS: TEMP 99.9
[2024-06-10 20:07] VITALS: BP 150/104; PULSE 107; RESP 18; O2SAT 96
[2024-06-10] MEDS: TraMADol HCL 50 MG TABLET PO ONE (22:23)
[2024-06-10] MEDS: LIDOCAINE 1% 10 ML VIAL SQ ONE (22:24)
[2024-06-10] MEDS ORDERED: CLIN-142 PO (23:27)
[2024-06-11] MEDS: CLINDAMYCIN PHOS 150 MG/ML 4 ML VIAL IM ONE (00:06)
== END 2024-06-11 01:29 | disposition home or self-care (01) ==
LOC: EMS 19:56 → EEVIPCON 19:56 → EMS 06-11 01:29
DX: L05.01 Pilonidal cyst with abscess (principal)
CPT/HCPCS: 10080; 99283; 96372; J3490 ×2

== ENCOUNTER 2024-06-13 10:16 | Emergency (ER) | payer MEDICAID ==
[~2024-06-13] VITALS: Ht 190.5 cm; Wt 131.8 kg
[~2024-06-13 10:16] MED LIST changes: +CLIN-142 PO
[2024-06-13 10:21] VITALS: BP 151/90; PULSE 83; RESP 20; TEMP 98.3; O2SAT 98
== END 2024-06-13 11:12 | disposition home or self-care (01) ==
LOC: EMS 10:17
DX: L05.01 Pilonidal cyst with abscess (principal); Z48.817 Encounter for surgical aftercare following surgery on the skin and subcutaneous tissue; Z71.6 Tobacco abuse counseling
CPT/HCPCS: 99281; Z7502